=== PATIENT | male | born 1975 | race African-American/Black ===

== ENCOUNTER 2022-07-19 12:19 | Emergency (ER) | payer SELFPAY ==
[2022-07-19] MEDS ORDERED: IBUP-2029 PO (21:30)
== END 2022-07-19 13:27 | disposition left against medical advice (07) ==
LOC: ER 12:19
DX: Z53.21 Procedure and treatment not carried out due to patient leaving prior to being seen by health care provider (principal)

== ENCOUNTER 2022-07-19 14:11 | Emergency (ER) | payer SELFPAY ==
[~2022-07-19] VITALS: Ht 175.3 cm; Wt 75.0 kg
[2022-07-19 14:14] VITALS: BP 132/70
[2022-07-19] MEDS ORDERED: IBUPROFEN 600MG TABLET PO ONE (19:45)
[2022-07-19] MEDS ORDERED: IBUP-2029 PO (21:30)
== END 2022-07-19 21:53 | disposition home or self-care (01) ==
LOC: ER 14:11
DX: M54.50 Low back pain, unspecified (principal); M54.2 Cervicalgia; R51.9 Headache, unspecified; V49.9XXA Car occupant (driver) (passenger) injured in unspecified traffic accident, initial encounter; Y93.89 Activity, other specified; Y92.89 Other specified places as the place of occurrence of the external cause; Y99.8 Other external cause status
CPT/HCPCS: 72040; 72100; 99284

== ENCOUNTER 2024-09-14 01:46 | Emergency (ER) | payer OTHER ==
[~2024-09-14] VITALS: Ht 172.7 cm; Wt 77.4 kg
[~2024-09-14 01:46] MED LIST: IBUP-2029 PO
[2024-09-14 02:05] VITALS: O2SAT 99
[2024-09-14 02:26] LABS: CLARITY URINE CLEAR (CLEAR); COLOR URINE YELLOW (YELLOW); GLUCOSE URINE NEGATIVE (NEGATIVE); KETONES URINE NEGATIVE (NEGATIVE); LEUKOCYTE ESTERASE URINE NEGATIVE (NEGATIVE); NITRITE URINE NEGATIVE (NEGATIVE); OCCULT BLOOD URINE NEGATIVE (NEGATIVE); PH URINE 6.5 (4.5-8.0); PROTEIN URINE NEGATIVE (NEGATIVE); SPECIFIC GRAVITY URINE 1.007 (1.005-1.030); UROBILINOGEN URINE 0.2 E.U./dL (0.2-1.0)
[2024-09-14] MEDS: KETOROLAC 30MG/ML VIAL IM ONE (03:15)
[2024-09-14 03:19] LABS: BASOPHILS % 0.4 % (0.0-2.0); EOSINOPHILS % 2.4 % (0.0-5.0); HEMATOCRIT. 41.6 % (42.0-52.0); HEMOGLOBIN. 13.9 g/dL (14.0-18.0); LYMPHOCYTES % 37.2 % (20.0-50.0); MEAN CORPUSCULAR HEMOGLOBIN 29.2 pg (28.0-32.0); MEAN CORPUSCULAR HGB CONC 33.4 g/dL (31.0-37.0); MEAN CORPUSCULAR VOLUME 87.6 fL (80.0-94.0); MEAN PLATELET VOLUME 7.9 fl (7.4-10.4); MONOCYTES % 10.4 % (2.0-8.0); NEUTROPHILS % 49.6 % (40.0-76.0); PLATELET 232 x1000/uL (130-400); RED BLOOD CELL COUNT 4.75 mill/uL (4.7-6.1); RED CELL DISTRIBUTION WIDTH 13.6 % (11.6-14.6); WHITE BLOOD COUNT 4.2 x1000/uL (4.5-11.0)
[2024-09-14 03:35] LABS: CHLORIDE 105 mEq/L (98-107); POTASSIUM 4.2 mEq/L (3.5-5.1); SODIUM 140 mEq/L (136-145)
[2024-09-14 03:36] LABS: CALCIUM 9.6 mg/dL (8.7-10.4); CARBON DIOXIDE 30 mEq/L (21-32)
[2024-09-14 03:41] LABS: GLUCOSE 118 mg/dL (70-105); UREA NITROGEN BLOOD 7 mg/dL (9-23)
[2024-09-14 03:43] LABS: ALANINE AMINOTRANSFERASE 27 IU/L (10-49); ALBUMIN 4.2 g/dL (3.2-4.8); ASPARTATE AMINOTRANSFERASE 22 IU/L (<34); BILIRUBIN DIRECT 0.2 mg/dL (<=3.0); BILIRUBIN TOTAL 0.7 mg/dL (0.1-1.0)
[2024-09-14 03:44] LABS: PROTEIN TOTAL 7.4 g/dL (6.0-8.3)
[2024-09-14 04:19] VITALS: BP 120/66; PULSE 69; RESP 16; TEMP 36.8; O2SAT 99
== END 2024-09-14 04:19 | disposition home or self-care (01) ==
LOC: ER 01:46
DX: R10.31 Right lower quadrant pain (principal); Z79.1 Long term (current) use of non-steroidal anti-inflammatories (NSAID)
CPT/HCPCS: 99285; 74176; 80076; 80048; 81003; 83690; 85025; 36415; 93005; 96372; J1885; 99283